=== PATIENT | male | born 1985 | race Caucasian/White ===

== ENCOUNTER 2018-09-02 06:21 | Emergency (ER) | payer OTHER ==
[~2018-09-02] VITALS: Ht 177.8 cm; Wt 89.5 kg
[2018-09-02 06:24] VITALS: BP 127/73
--- NOTE | 2018-09-02 06:29 | NUR ---
PT AMBULATED STEADILY TO ROOM FROM TRIAGE W TRIAGE TECH
--- NOTE | 2018-09-02 06:58 | NUR ---
Pt in ED room resting on gurney. Xray at bedside.
--- NOTE | 2018-09-02 07:18 | NUR ---
Went to pt room. Pt not in room. Will recheck on pt room in 5 minutes.
--- NOTE | 2018-09-02 08:15 | NUR ---
Patient given discharge instructions and they have confirmed that they understand the instructions. Patient ambulatory with steady gait. Pt left with d/c paperwork, prescription, and all personal belongings. Pt encouraged to return to ED if symptoms worsen or change.
== END 2018-09-02 08:18 | disposition home or self-care (01) ==
LOC: ED 08:00
DX: S63.653A Sprain of metacarpophalangeal joint of left middle finger, initial encounter (principal); S63.655A Sprain of metacarpophalangeal joint of left ring finger, initial encounter; S63.657A Sprain of metacarpophalangeal joint of left little finger, initial encounter; G89.11 Acute pain due to trauma; Y08.89XA Assault by other specified means, initial encounter; Y93.89 Activity, other specified; Y92.89 Other specified places as the place of occurrence of the external cause; Y99.8 Other external cause status
CPT/HCPCS: 99283